=== PATIENT | male | born 1980 | race Hispanic/Latino ===

== ENCOUNTER 2019-05-21 18:56 | Emergency (ER) | payer BC ==
[~2019-05-21] VITALS: Ht 170.2 cm; Wt 86.0 kg
[2019-05-21] MEDS ORDERED: DOXYCYCL HYC100 MG PO (19:42)
[2019-05-21 19:45] VITALS: BP 137/92
== END 2019-05-21 19:45 | disposition home or self-care (01) | DRG 605 ==
LOC: ED 18:56
PROC: 0HQFXZZ Repair Right Hand Skin, External Approach (ICD-10-PCS; principal; 2019-05-21)
DX: S61.216A Laceration without foreign body of right little finger without damage to nail, initial encounter (principal); W26.8XXA Contact with other sharp object(s), not elsewhere classified, initial encounter; Y93.G1 Activity, food preparation and clean up; Y92.009 Unspecified place in unspecified non-institutional (private) residence as the place of occurrence of the external cause